=== PATIENT | female | born 1975 | race Native Hawaiian/Other Pacific Islander ===

== ENCOUNTER 2017-05-05 05:19 | Day surgery (SDC) | payer OTHER ==
[2017-04-30 15:14] VITALS: BMI 32.4
--- NOTE | 2017-05-05 17:06 | HP ---
Past Medical History - Primary Care Physician PCP:: Rony Caballero - Admission Chief Complaint: 41yo female with h/o cervical incompetence, admitted for cervical cerclage placement at EGA 15w4d History of Present Illness: at EGA 15w4d AMA Prior loss at 21-22wks due to cervical incompetence Prior IUFD at 28wks (with cervical cerclage in place) prior delivery at term (with cervical cerclage in place) Prior SAB Uterine fibroids. 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: Alzheimer's, CVA, Dementia, Migraine, Multiple Sclerosis, Peripheral Neuropathy, Parkinson's, Seizure, Syncope, TIA, Vertigo, Other Cardiovascular: No: AFIB, Aneurysm, Aortic Insufficiency, Aortic Stenosis, CAD, CHF, Deep Vein Thrombosis, HTN, Hyperlipdemia, [place], Mitral Insufficiency, Mitral Stenosis, Murmur, Pulmonary Hypertension, Other Pulmonary: No: Asthma, Bronchitis, Cancer, COPD, O2 Dependent, Pneumonia, Previously Intubated, Pulmonary Embolus, Pulmonary Fibrosis, Sleep Apnea, Other Gastrointestinal: No: Ascites, Cancer, Constipation, Crohn's Disease, Diverticulitis, Diverticulosis, Esophageal Varices, Gastritis, GERD, GI Bleed, Hemorrhoids, Hiatal Hernia, Inflamatory Bowel Disease, Irritable Bowel Disease, Pancreatitis, Peptic Ulcer Disease, Ulcerative Colitis, Other Hepatobiliary: No: Cirrhosis, Cholelithiasis, Cholecystitis, Choledocholithiasis , Hepatitis A, Hepatitis B, Hepatitis C, Other Renal/: No: Renal Failure, Renal Inusuff, BPH, Cancer, Hematuria, Hemodialysis , Neurogenic Bladder, Renal Calculi, UTI, Other Reproductive: No: Ectopic , Endometriosis, Fibroids, PID, Polycystic Ovary Syndrome, Postmenopausal, Other ...Para: 1 Additional OB History: at EGA 15w4d. AMA. Prior loss at 21- 22wks due to cervical incompetence. Prior IUFD at 28wks (with cervical cerclage in place). prior delivery at term (with cervical cerclage in place). Prior SAB. Uterine fibroids. Heme/Onc: No: Anemia, B12 Deficiency, Bleeding Disorder, Cancer, Current Chemotherapy, Current Radiation Therapy, Hemochromatosis, Hypercoaguable State, Myeloproliferative Synd, Sickle Cell Disease, Sickle Cell Trait, Thrombocytopenia, Other Infectious Disease: No: AIDS, C-Diff, Herpes Zoster, HIV, MRSA, STD's, Tuberculosis, VREF, Other Psych: No: Addictions, Anxiety, Bipolar, Depression, Panic, Psychosis, Schizophrenia, Other Musculoskeletal: No: Bursitis, Chronic low back pain, Hemiparesis, Hemiplegia, Osteoarthritis, Paraplegia, Other Rheumatology: No: Fibromyalgia, Gout, Lupus, Rheumatoid Arthritis, Sarcoidosis, Vasculitis, Other ENT: No: Allergic Rhinitis, Sinusitis, Other Endocrine: No: [place]'s Disease, Deborah's Disease, Diabetes Insipidus, Diabetes Mellitus, Hyperparathyroidism, Hyperthyroidism, Hypothyroidism, Osteopenia, SIADH, Other Dermatology: No: Basal Cell, Cellulitis, Eczema, Melanoma, Psoriasis, Squamous Cell, Other Additional Medical History: PCOS - Past Surgical History Hx Myomectomy: No Hx Transabdominal Cerclage: No Additional Surgical History: D&C x 2 - Smoking History Smoking history: Never smoked Have you smoked in the past 12 months: No - Alcohol/Substance Use Hx Alcohol Use: No History of Substance Use: reports: None - Social History Usual Living Arrangement: Yes: With Spouse, With Child ADL: Independent History of Recent Travel: No Home Medications - Allergies Allergies/Adverse Reactions: Allergies Allergy/AdvReac Type Severity Reaction Status Date / Time Penicillins Allergy Intermediate Hives Verified 05/05/17 14:57 - Home Medications Home Medications: Ambulatory Orders Iron/FA#1/Vit C/B12/Zn/Dss/Suc [Feriva 21-7 Tablet] 1 each PO DAILY 05/05/17 Vit No.87/Iron/FA/Dha [Prenate Mini Softgel] 1 each PO DAILY 05/05/17 Family Disease History - Family Disease History Family Disease History: Diabetes: Father, Mother (HTN, CVA), Heart Disease: Father, Mother, Other: Mother Review of Systems - Review of Systems Constitutional: reports: No Symptoms Eyes: reports: No Symptoms HENT: reports: No Symptoms Neck: reports: No Symptoms Cardiovascular: reports: No Symptoms Respiratory: reports: No Symptoms Gastrointestinal: reports: No Symptoms Genitourinary: reports: No Symptoms Breasts: reports: No Symptoms Reported Musculoskeletal: reports: No Symptoms Integumentary: reports: No Symptoms Neurological: reports: No Symptoms Endocrine: reports: No Symptoms Hematology/Lymphatic: reports: No Symptoms Psychiatric: reports: No Symptoms Pain Intensity: 0 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: Vital Signs Temperature 97.9 F 05/05/17 14:54 Pulse Rate 87 05/05/17 14:54 Respiratory Rate 20 05/05/17 14:54 Blood Pressure 126/77 05/05/17 14:54 O2 Sat by Pulse Oximetry (%) 100 05/05/17 14:53 Constitutional: Yes: Well Nourished, No Distress, Calm Eyes: Yes: WNL, Conjunctiva Clear, EOM Intact HENT: Yes: WNL, Atraumatic, Normocephalic Neck: Yes: WNL, Supple, Trachea Midline Cardiovascular: Yes: WNL, Regular Rate and Rhythm Respiratory: Yes: WNL, Regular, CTA Bilaterally Gastrointestinal: Yes: WNL, Normal Bowel Sounds, Soft ...Rectal Exam: Yes: Deferred Renal/: Yes: WNL Pelvis: Yes: WNL External Genitalia: Yes: Normal Internal Exam Deferred: No Vaginal Exam: Yes: Normal Cervix: Yes: Normal Musculoskeletal: Yes: WNL Extremities: Yes: WNL Edema: No Integumentary: Yes: WNL Neurological: Yes: WNL, Alert, Oriented ...Motor Strength: WNL Psychiatric: Yes: WNL, Alert, Oriented Imaging - Results Ultrasound: Report Reviewed Assessment/Plan 41yo female with h/o cervical incompetence, admitted for cervical cerclage placement at [facility] 15w4d. I spoke to pt and we reviewed prior OB history. We also discussed the risks, benefits, and alternatives of cervical cerclage including but not limited to infection, damage to the cervix during surgery, excessive blood loss, pPROM, labor, cervical stenosis, tearing of cervix in labor , uterine rupture, etc. The pt requested to proceed with surgery.
[2017-05-05] MEDS ORDERED: ePHEDrine SULFATE 50 MG/1 ML AMPULE ONE (17:14)
[2017-05-05] MEDS ORDERED: ceFAZolin SODIUM 1 GM VIAL ONE (17:26)
[2017-05-05] MEDS ORDERED: ceFAZolin SODIUM 1 GM VIAL IVPB ONE (17:29)
[2017-05-05] MEDS ORDERED: IBUPROFEN 800 MG/8 ML IJ IVPB ONE (18:11)
[2017-05-05] MEDS ORDERED: ACETAMINOPHEN 1000 MG/100 ML VIAL (NON FORMULARY) IVPB ONE (18:11)
--- NOTE | 2017-05-05 18:55 | OP ---
Operative Note - Note: Operative Date: 05/05/17 Pre-Operative Diagnosis: Cervical incompetence Operation: Dickinson Cervical Cerclage Findings: Soft parous cervix with closed cervical os. Preop and postop bedside US showed a viable IUP in variable presentation. Post-Operative Diagnosis: Same as Pre-op Surgeon: Rony Caballero Anesthesiologist/NITROCELLULOSE OPERATOR: Adonis Shine Anesthesia: Spinal Estimated Blood Loss (mls): 5 Drains & Tubes with Location: Straight cath bladder post op Drains, Volume Out (mls): 5 Blood Volume Replaced (mls): 0 Fluid Volume Replaced (mls): 800 Operative Report Dictated: Yes
[2017-05-05] MEDS ORDERED: ACETAMINOPHEN 1000 MG/100 ML VIAL (NON FORMULARY) IVPB PRN (20:12)
[2017-05-05] MEDS ORDERED: IBUPROFEN 800 MG/8 ML IJ IVPB PRN (20:12)
--- NOTE | 2017-05-05 21:20 | OP ---
DATE OF OPERATION: 05/05/2017 PREOPERATIVE DIAGNOSES: at estimated gestational age of 15 weeks and 4 days; cervical incompetence; poor prior obstetrical history. POSTOPERATIVE DIAGNOSES: at estimated gestational age of 15 weeks and 4 days; cervical incompetence; poor prior obstetrical history. PROCEDURE: Dickinson cervical cerclage using 5 mm Mersilene tape. SURGEON: Rony Caballero MD ANESTHESIOLOGIST: Adonis Shine MD ANESTHESIA: Spinal. COMPLICATIONS: None. ESTIMATED BLOOD LOSS: 5 mL. URINE OUTPUT: 100 mL. FINDINGS: Preoperative ultrasound at bedside confirmed a viable intrauterine consistent with the stated gestational age. Normal heart rate was observed. Intraoperatively, a parous, soft cervix was noted with a closed cervical os. Uncomplicated Dickinson cervical cerclage was performed. Postoperatively, bedside ultrasound was once again performed in the OR and showed a viable intrauterine with a normal heart rate. In the recovery room, another postoperative ultrasound was performed at bedside and, once again, showed a viable intrauterine with a normal heart rate. PROCEDURE: The patient was met preoperatively. Risks, benefits, and alternatives of surgery were discussed in detail. All questions were answered. The patient was brought to the OR with the IV running. She was placed on the surgical table in the sitting position. The spinal anesthesia was achieved without difficulty. The patient was then placed in a dorsal lithotomy position using adjustable Zack stirrups. The patient was prepped and draped in the usual sterile fashion. A preoperative ultrasound was performed with the findings as documented previously. Vaginal wall retractors were used to visualize the cervix. The cervix was grasped with an Allis clamp. Gentle traction to the cervix was applied. The cervicovaginal junction was ascertained and a 5 mm Mersilene stitch was placed circumferentially in a pursestring fashion at the level approximating an internal cervical os. The suture was placed with good hemostasis and tied posteriorly. The Mersilene suture was then cut and the needles were removed from the field. Once again, good hemostasis was confirmed. All of the instruments were then removed from the patient. A postoperative bedside obstetric ultrasound was performed and documented a viable intrauterine with a normal heart rate. The patient was then returned to supine position. She was transferred to recovery room awake and in stable condition. In the recovery room, another ultrasound was performed at bedside and documented a normal viable with a normal heart rate. Javier [id number]
[2017-05-05 22:57] VITALS: BP 121/64; PULSE 80; TEMP 98
== END 2017-05-05 22:45 | disposition home or self-care (01) ==
LOC: JASU-SURG 05:19 → J3W 22:03 → JASU-SURG 22:45
PROVIDERS: ATTEND Obstetrics & Gynecology
PROC: 0UVC7ZZ Restriction of Cervix, Via Natural or Artificial Opening (ICD-10-PCS; principal; 2017-05-05 16:00)
DX: O34.32 Maternal care for cervical incompetence, second trimester (principal); Z3A.15 15 weeks gestation of pregnancy
CPT/HCPCS: 94760

== ENCOUNTER 2017-10-06 11:30 | Inpatient (IN) | payer OTHER ==
[2017-10-06] MEDS ORDERED: TUBERCULIN PPD 5 TU/0.1ML SYRINGE (IN PATIENT USE ONLY) ID ONE (12:10)
[2017-10-06] MEDS ORDERED: OXYTOCIN 15 UNITS/ LR 250 ML 250 ML IVPB SCH (12:15)
[2017-10-06] MEDS ORDERED: VANCOMYCIN 1,000 MG in DEXTROSE 5%-WATER - 250 ML IVPB SCH (12:15)
[2017-10-06] MEDS ORDERED: ELECTROLYTE-148 SOLN 1,000 ML IV SCH (12:15)
--- NOTE | 2017-10-06 12:21 | HP ---
Past Medical History - Admission History of Present Illness: 42 yo @ 37 4/7 wks by first trimester ultrasound, EDC 10/23/17 1. PCOS 2. Hx/o incompetent cervix, s/p cerclage, removed by Dr. Caballero 09/29/2017; s/p vaginal progesterone (dc at 37 wks) 3. AMA - resssuring cell free DNA and testing; EFW 51%, 3013 g () 4. 22 wk delivery 2004 5. 28 wk demise, with multiple anomalies, s/p induced IOL 6. GBS positive, penicillin allergy, clindamycin resistant 7. Obesity - normal early and routine GCT She reports presenting to the office for routine exam, found to be 4-5 cm. She reports irregular contractions, movement. She denies leakage of fluid or vaginal bleeding. - Past Medical History Cardiovascular: No: HTN Pulmonary: No: Asthma Gastrointestinal: No: GERD ...: 5 ...Para: 1 ...Term: 1 ...: 2 ...Spon : 1 Heme/Onc: No: Anemia Additional Medical History: PCOS - Past Surgical History Hx Myomectomy: No Hx Transabdominal Cerclage: No Additional Surgical History: D&C - Smoking History Smoking history: Never smoked Have you smoked in the past 12 months: No - Alcohol/Substance Use Hx Alcohol Use: No History of Substance Use: reports: None - Social History ADL: Independent History of Recent Travel: No Home Medications - Allergies Allergies/Adverse Reactions: Allergies Allergy/AdvReac Type Severity Reaction Status Date / Time Penicillins Allergy Intermediate Hives Verified 08/02/17 17:05 - Home Medications Home Medications: Ambulatory Orders Iron/Folate No1/C/B12/Zinc/Dss [Feriva 21-7 Tablet] 1 each PO DAILY 05/05/17 Vit 87/Iron/Folic/Dha [Prenate Mini Softgel] 1 each PO DAILY 05/05/17 Family Disease History - Family Disease History Family History: Denies Family Disease History: Diabetes: Father, Mother (HTN, CVA), Heart Disease: Father, Mother, Other: Mother Review of Systems - Review of Systems Constitutional: reports: No Symptoms Cardiovascular: reports: No Symptoms Respiratory: reports: No Symptoms Gastrointestinal: reports: No Symptoms Genitourinary: reports: No Symptoms Breasts: reports: No Symptoms Reported Musculoskeletal: reports: No Symptoms Endocrine: reports: No Symptoms Hematology/Lymphatic: reports: No Symptoms Psychiatric: reports: No Symptoms Physical Exam - Maternity Constitutional: Yes: Well Nourished, No Distress, Calm Neck: Yes: Supple Cardiovascular: Yes: Regular Rate and Rhythm Lungs: Clear to auscultation - Abdominal Exam/OB Number of Fetuses: Single Presentation: Vertex Contractions: No Category: I Accelerations: Non-Uniform Decelerations: None - Vaginal Exam/OB Dilatation (cm): 4 Effacement (%): 70 Amniotic Membrane Status: Intact Station: -3 - Physical Exam Musculoskeletal: Yes: WNL Extremities: Yes: WNL Edema: No Psychiatric: Yes: Alert, Oriented - Labs Lab Results: PNL - O positive, antibody negative, RPR NR; HBS ag negative; Rubella Immune; GBS positive, HIV negative Hemorrhage Risk Assessment - Risk Factors Medium Risk Factors: Yes: None High Risk Factors: Yes: None Risk Score: 1 Risk Level: Medium Risk Assessment/Plan 42 yo admitted for augmentation of labor 1. Admit to L&D 2. Routine labs collected and sent 3. GBS positive, penicillin allergy; clindamycin resistant 4. Desires epidural for pain control 5. Will proceed with expectant management
[2017-10-06] MEDS ORDERED: VANCOMYCIN 1,000 MG in DEXTROSE 5%-WATER - 250 ML IVPB ONE (12:45)
[2017-10-06 12:58] LABS: BASO % 0.2 % (0-2.0); EOS % 0.3 % (0-4.5); HEMATOCRIT 37.7 % (32.4-45.2); HEMOGLOBIN 12.4 GM/dL (10.7-15.3); LYMPH % 14.7 % (8-40); MCH 26.7 pg (25.7-33.7); MEAN CELL VOLUME 80.8 fl (80-96); MEAN PLT VOLUME 10.5 fl (7.5-11.1); MONO % 5.4 % (3.8-10.2); NEUT % 79.4 % (42.8-82.8); PLATELET COUNT 116 K/MM3 (134-434); RBC 4.67 M/mm3 (3.60-5.2); RDW 13.9 % (11.6-15.6); WHITE BLOOD COUNT 7.5 K/mm3 (4.0-10.0)
[2017-10-06] MEDS ORDERED: OXYTOCIN 30 UNITS in 0.9% NS 30 UNIT/500 ML INFUS.BAG IVPB SCH (13:15)
[2017-10-06 13:16] LABS: INR 0.91 (0.82-1.09); PROTHROMBIN TIME (PATIENT) 10.3 SEC (9.98-11.88)
[2017-10-06 13:25] VITALS: BMI 33.0
[2017-10-06] MEDS ORDERED: OXYTOCIN 30 UNITS in 0.9% NS 30 UNIT/500 ML INFUS.BAG IVPB ONE (13:33)
[2017-10-06 13:45] LABS: ANION GAP 13 (8-16); BLOOD UREA NITROGEN 12 mg/dL (7-18); CALCIUM 9.3 mg/dL (8.5-10.1); CHLORIDE 107 mmol/L (98-107); CO2 19 mmol/L (21-32); CREATININE 0.5 mg/dL (0.55-1.02); GLUCOSE,RANDOM 68 mg/dL (74-106); POTASSIUM 4.1 mmol/L (3.5-5.1); SODIUM 139 mmol/L (136-145)
[2017-10-06] MEDS ORDERED: FENTANYL/BUPIVACAINE/NS/PF - PCEA - 50 ML DISP.SYRIN EP ONE (18:18)
[2017-10-06] MEDS ORDERED: NALOXONE HCL 0.4 MG/ML VIAL IVPUSH PRN (19:05)
[2017-10-06] MEDS ORDERED: FENTANYL/BUPIVACAINE/NS/PF - PCEA - 50 ML DISP.SYRIN EP SCH (19:15)
[2017-10-06] MEDS ORDERED: OXYTOCIN 20 UNITS in 0.9% NS 20 UNIT/1,000 ML INFUS.BAG IV ONE (19:43)
[2017-10-06] MEDS ORDERED: WITCH HAZEL 50% (TUCKS) 40 PAD/JAR PAD TP PRN (20:43)
[2017-10-06] MEDS ORDERED: METHYLERGONOVINE MALEATE 0.2 MG/1 ML AMP IM PRN (20:43)
[2017-10-06] MEDS ORDERED: BENZOCAINE 20% 57 GM BOTTLE TP PRN (20:43)
[2017-10-06] MEDS ORDERED: BISACODYL 10 MG SUPP.RECT RC PRN (20:43)
[2017-10-06] MEDS ORDERED: BENZOCAINE 28 GM HEMORRHOIDAL OINTMENT TP PRN (20:43)
[2017-10-06] MEDS ORDERED: OXYTOCIN 20 UNITS in 0.9% NS 20 UNIT/1,000 ML INFUS.BAG IV SCH (20:45)
[2017-10-07] MEDS: ACETAMINOPHEN 325 MG TABLET (FP) PO PRN ×2 (00:17→20:37)
[2017-10-07] MEDS: IBUPROFEN 600 MG TABLET (FP) PO PRN ×2 (00:18→20:36)
[2017-10-07] MEDS ORDERED: VANCOMYCIN 1,000 MG in DEXTROSE 5%-WATER - 250 ML IVPB ONE (01:00)
--- NOTE | 2017-10-07 08:22 | PN ---
Post Progress Note - Subjective Subjective: Patient without acute complaints. Reports tolerating oral intake without nausea or vomiting. Ambulating without dizziness. Denies fevers or chills. Pain well controlled with oral pain medication. without difficulty. Passing flatus. Post Day: 1 Type of Delivery: Vital Signs: Vital Signs Temperature 98.0 F 10/07/17 06:00 Pulse Rate 77 10/07/17 06:00 Respiratory Rate 18 10/07/17 06:00 Blood Pressure 119/75 10/07/17 06:00 O2 Sat by Pulse Oximetry (%) 99 10/06/17 19:55 Breast Exam: Yes: Engorged Uterus: Yes: Fundus Firm Incision: Yes: Dressing dry and intact Abdomen/GI: Yes: Abdomen soft, Passing flatus, Tolerating PO Lochia: Yes: Serosa Lochia, amount: Small Extremities: Yes: Calves non-tender. No: Edema Activity: Ambulating - Labs Labs: CBC WBC 7.5 K/mm3 (4.0-10.0) 10/06/17 12:40 RBC 4.67 M/mm3 (3.60-5.2) 10/06/17 12:40 Hgb 12.4 GM/dL (10.7-15.3) 10/06/17 12:40 Hct 37.7 % (32.4-45.2) 10/06/17 12:40 MCV 80.8 fl (80-96) 10/06/17 12:40 MCH 26.7 pg (25.7-33.7) 10/06/17 12:40 MCHC 33.0 g/dl (32.0-36.0) 10/06/17 12:40 RDW 13.9 % (11.6-15.6) 10/06/17 12:40 Plt Count 116 K/MM3 (134-434) L D 10/06/17 12:40 MPV 10.5 fl (7.5-11.1) 10/06/17 12:40 Neutrophils % 79.4 % (42.8-82.8) 10/06/17 12:40 Lymphocytes % 14.7 % (8-40) 10/06/17 12:40 Monocytes % 5.4 % (3.8-10.2) 10/06/17 12:40 Eosinophils % 0.3 % (0-4.5) 10/06/17 12:40 Basophils % 0.2 % (0-2.0) 10/06/17 12:40 Assessment/Plan 42 yo PPD # 1 s/p , afebrile, vital signs stable, doing well 1. Continue routine care. 2. Stable H/H, mildly lowered platelets, plan to repeat tomorrow 3. Rh positive status, no rhogam indicated. 4. Encourage ambulation 5. Continue oral pain medication 6. Anticipate discharge home day #2
[2017-10-07 09:14] LABS: BASO % 0.1 % (0-2.0); EOS % 0.3 % (0-4.5); HEMATOCRIT 35.7 % (32.4-45.2); HEMOGLOBIN 11.8 GM/dL (10.7-15.3); LYMPH % 16.1 % (8-40); MCH 27.1 pg (25.7-33.7); MCHC 33.2 g/dl (32.0-36.0); MEAN CELL VOLUME 81.6 fl (80-96); MEAN PLT VOLUME 10.7 fl (7.5-11.1); MONO % 3.7 % (3.8-10.2); NEUT % 79.8 % (42.8-82.8); PLATELET COUNT 109 K/MM3 (134-434); RBC 4.38 M/mm3 (3.60-5.2); WHITE BLOOD COUNT 9.6 K/mm3 (4.0-10.0)
[2017-10-07] MEDS: PRENATAL VITAMINS W/ FOLIC ACID TABLET (FP) PO SCH (09:41)
[2017-10-07] MEDS ORDERED: DIPHTH,PERTUSS(ACELL),TET 0.5 ML DISP.SYRIN IM ONE (10:00)
[2017-10-07] MEDS ORDERED: SENNOSIDES/DOCUSATE COMBO (SENNA PLUS) TABLET (UD) PO PRN (22:00)
--- NOTE | 2017-10-08 05:28 | DS ---
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 Signs: Vital Signs Temperature 98 F 10/07/17 22:00 Pulse Rate 90 10/07/17 22:00 Respiratory Rate 18 10/07/17 22:00 Blood Pressure 122/70 10/07/17 22:00 O2 Sat by Pulse Oximetry (%) 99 10/06/17 19:55 Constitutional: Yes: Well Nourished, No Distress, Calm Eyes: Yes: WNL, Conjunctiva Clear, EOM Intact HENT: Yes: WNL, Atraumatic, Normocephalic Neck: Yes: WNL, Supple, Trachea Midline Cardiovascular: Yes: WNL, Regular Rate and Rhythm Respiratory: Yes: WNL, Regular, CTA Bilaterally Gastrointestinal: Yes: WNL ...Rectal Exam: Yes: WNL Renal/: Yes: WNL ....Post : Yes: Uterus firm, Uterus non-tender, Slight lochia rubra Breast(s): Yes: WNL Musculoskeletal: Yes: WNL Extremities: Yes: WNL Edema: No Integumentary: Yes: WNL Neurological: Yes: WNL, Alert, Oriented ...Motor Strength: WNL Psychiatric: Yes: WNL, Alert, Oriented Labs: CBC, BMP 10/07/17 08:00 10/06/17 12:40 Delivery - Delivery Vaginal Delivery: Spontaneous Type of Anesthesia: Epidural Episiotomy/Laceration: 1st degree EBL (cc): 400 Delivery, Single - Stages of Labor Date 1st Stage Initiatied: 10/06/17 Time 1st Stage Initiated: 00:05 Date 2nd Stage Initiated: 10/06/17 Time 2nd Stage Initiated: 19:45 Date of Delivery: 10/06/17 Time of Delivery: 19:59 Time Placenta Delivered: 20:10 Placenta: Yes: Spontaneous - 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: No Infant Gender: Female Weight: 7 lb 1 oz Position: Left, OA Total Hours ROM (Hrs/Mins): [id number] - 1 Minute Total Score: 9 5 Minutes Total Score: 9 - Feeding Plan Initial Plan: Elected not to breastfeed exclusively throughout hospitalization Discharge Summary Reason For Visit: LABOR Procedures: Principal: Hospital Course: no complication Condition: Good - Instructions Diet, Activity, Other Instructions: regular diet, follow up office 4 weeks Referrals: Eden Diaz MD [Staff Physician] - Disposition: HOME - Home Medications Comprehensive Discharge Medication List: Ambulatory Orders Iron/Folate No1/C/B12/Zinc/Dss [Feriva 21-7 Tablet] 1 each PO DAILY 05/05/17 Vit 87/Iron/Folic/Dha [Prenate Mini Softgel] 1 each PO DAILY 05/05/17 Ibuprofen [Motrin -] 600 mg PO QID #28 tablet 10/07/17
[2017-10-08 07:40] LABS: HEMATOCRIT 35.4 % (32.4-45.2); HEMOGLOBIN 11.6 GM/dL (10.7-15.3); MCH 27.3 pg (25.7-33.7); MCHC 32.7 g/dl (32.0-36.0); MEAN CELL VOLUME 83.6 fl (80-96); MEAN PLT VOLUME 11.1 fl (7.5-11.1); PLATELET COUNT 119 K/MM3 (134-434); RBC 4.23 M/mm3 (3.60-5.2); WHITE BLOOD COUNT 7.8 K/mm3 (4.0-10.0)
[2017-10-08 08:36] VITALS: BP 135/81; PULSE 85; TEMP 98.1
[2017-10-08] MEDS: PRENATAL VITAMINS W/ FOLIC ACID TABLET (FP) PO SCH (10:18)
[2017-10-08] MEDS: ACETAMINOPHEN 325 MG TABLET (FP) PO PRN (10:18)
[2017-10-08] MEDS: IBUPROFEN 600 MG TABLET (FP) PO PRN (10:19)
== END 2017-10-08 13:55 | disposition home or self-care (01) | DRG 775 ==
LOC: JLDR 11:30 → J3W 10-07 00:05
PROVIDERS: ADMIT Obstetrics & Gynecology; ATTEND Obstetrics & Gynecology
PROC: 10E0XZZ Delivery of Products of Conception, External Approach (ICD-10-PCS; principal; 2017-10-06)
PROC: 0HQ9XZZ Repair Perineum Skin, External Approach (ICD-10-PCS; 2017-10-06)
PROC: 0W8NXZZ Division of Female Perineum, External Approach (ICD-10-PCS; 2017-10-06)
DX: O70.0 First degree perineal laceration during delivery (principal); O99.214 Obesity complicating childbirth; Z3A.37 37 weeks gestation of pregnancy; Z22.330 Carrier of Group B streptococcus; Z37.0 Single live birth
CPT/HCPCS: 36415; 59409; 80048; 85025; 85027; 85610; 85730; 86593; 86850; 86900; 86901; 90715

== ENCOUNTER 2022-12-14 04:28 | Day surgery (SDC) | payer OTHER ==
[2022-12-10 15:59] VITALS: BMI 33.6
[2022-12-14] MEDS ORDERED: PROPOFOL 40 ML ONE (07:31)
[2022-12-14] MEDS ORDERED: LIDOCAINE HCL/PF 2% SDV 5ML VIAL ONE ×2 (07:31→09:45)
[2022-12-14] MEDS ORDERED: TRANEXAMIC ACID 1000 MG/10 ML VIAL ONE (09:45)
[2022-12-14] MEDS ORDERED: MIDAZOLAM HCL 2 MG/2 ML SINGLE DOSE VIAL ONE (09:45)
[2022-12-14] MEDS ORDERED: PROPOFOL 20 ML ONE (09:46)
[2022-12-14] MEDS ORDERED: CLINDAMYCIN 900 MG PREMIX BAG IVPB ONE (09:55)
[2022-12-14] MEDS ORDERED: ONDANSETRON 4 MG/2 ML VIAL ONE (09:56)
[2022-12-14] MEDS ORDERED: DEXAMETHASONE SOD PHOSPHATE 4 MG/1 ML VIAL ONE (09:56)
[2022-12-14] MEDS ORDERED: KETOROLAC TROMETHAMINE 30 MG/1 ML VIAL ONE (10:41)
[2022-12-14] MEDS ORDERED: PROMETHAZINE HCL 25 MG/1 ML VIAL IVPB PRN (11:02)
[2022-12-14] MEDS ORDERED: oxyCODONE HCL 5 MG TABLET PO PRN ×2 (11:02)
[2022-12-14] MEDS ORDERED: FENTANYL CITRATE/PF 50 MCG/ML VIAL IVPUSH PRN ×2 (11:02)
[2022-12-14] MEDS ORDERED: ONDANSETRON 4 MG/2 ML VIAL IVPUSH PRN (11:02)
[2022-12-14] MEDS ORDERED: LACTATED RINGERS SOLUTION 1,000 ML IV SCH (11:15)
[2022-12-14 12:53] VITALS: RESP 18
[2022-12-14 13:12] VITALS: TEMP 98.4
[2022-12-14 16:49] VITALS: BP 118/64; PULSE 72
== END 2022-12-14 14:55 | disposition home or self-care (01) ==
LOC: JASU-SURG 04:28
PROVIDERS: ATTEND Obstetrics & Gynecology
PROC: 0UB98ZZ Excision of Uterus, Via Natural or Artificial Opening Endoscopic (ICD-10-PCS; principal; 2022-12-14 09:00)
DX: N92.0 Excessive and frequent menstruation with regular cycle (principal); D25.9 Leiomyoma of uterus, unspecified
CPT/HCPCS: 81025; 88305-TC; 94760

== ENCOUNTER 2025-04-30 06:17 | Day surgery (SDC) | payer BC ==
[2025-04-30] MEDS ORDERED: ONDANSETRON 4 MG/2 ML VIAL IVPUSH PRN (12:09)
[2025-04-30] MEDS ORDERED: PROMETHAZINE HCL 25 MG/1 ML VIAL IVPB PRN (12:09)
[2025-04-30] MEDS ORDERED: MIDAZOLAM HCL 2 MG/2 ML SINGLE DOSE VIAL ONE (12:11)
[2025-04-30] MEDS ORDERED: PROPOFOL 20 ML ONE (12:11)
[2025-04-30] MEDS ORDERED: LIDOCAINE HCL/PF 2% SDV 5ML VIAL ONE (12:11)
[2025-04-30] MEDS ORDERED: LACTATED RINGERS SOLUTION 1,000 ML IV SCH (12:15)
[2025-04-30] MEDS ORDERED: DEXAMETHASONE SOD PHOSPHATE 4 MG/1 ML VIAL ONE (13:05)
[2025-04-30] MEDS ORDERED: ONDANSETRON 4 MG/2 ML VIAL ONE (13:13)
[2025-04-30] MEDS ORDERED: KETOROLAC TROMETHAMINE 30 MG/1 ML VIAL ONE (13:13)
[2025-04-30] MEDS ORDERED: ACETAMINOPHEN INJECTION 100 ML ONE (14:24)
[2025-04-30] MEDS: ACETAMINOPHEN 1000 MG/100 ML BAG IVPB ONE (14:26)
[2025-04-30 16:09] VITALS: RESP 20
[2025-04-30 17:26] VITALS: BP 140/74; PULSE 80; TEMP 97.5
== END 2025-04-30 17:10 | disposition home or self-care (01) ==
LOC: JASU-SURG 06:17
PROVIDERS: ATTEND Obstetrics & Gynecology
PROC: 0U5B8ZZ Destruction of Endometrium, Via Natural or Artificial Opening Endoscopic (ICD-10-PCS; principal; 2025-04-30 12:00)
DX: N92.0 Excessive and frequent menstruation with regular cycle (principal); D25.0 Submucous leiomyoma of uterus
CPT/HCPCS: 88305-TC; 94760